=== PATIENT | male | born 1965 | race Caucasian/White ===

== ENCOUNTER 2022-05-05 18:56 | Emergency (ER) | payer OTHER ==
[~2022-05-05] VITALS: Ht 183 cm; Wt 95.6 kg
[2022-05-05] MEDS ORDERED: NS IV 1000 ML 1,000 ML IV STA (19:06)
[2022-05-05] MEDS ORDERED: fentaNYL INJ 100 MCG/2 ML AMP IVP STA (19:06)
[2022-05-05] MEDS ORDERED: TETANUS,DIPTH,PERTUSS P/F (BOOSTRIX) 0.5 ML VIAL IM ONE (19:15)
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
[2022-05-05 19:25] LABS: BASOPHILS # (AUTO) 0.1 10^3/uL (0.0-0.1); BASOPHILS % (AUTO) 0 % (0-10); EOSINOPHILS # (AUTO) 0.3 10^3/uL (0.0-0.3); EOSINOPHILS % (AUTO) 2 % (0-10); HEMATOCRIT 43 % (40-54); HEMOGLOBIN 14.6 g/dL (13.3-17.7); LYMPHOCYTES # (AUTO) 5.8 10^3/uL (1.0-4.0); LYMPHOCYTES % (AUTO) 39 % (12-44); MEAN CORPUSCULAR HEMOGLOBIN 31 pg (25-34); MEAN CORPUSCULAR HGB CONC 34 g/dL (32-36); MEAN CORPUSCULAR VOLUME 92 fL (80-99); MEAN PLATELET VOLUME 11.9 fL (9.0-12.2); MONOCYTES # (AUTO) 0.9 10^3/uL (0.0-1.0); MONOCYTES % (AUTO) 6 % (0-12); NEUTROPHILS # (AUTO) 7.8 10^3/uL (1.8-7.8); NEUTROPHILS % (AUTO) 52 % (42-75); PLATELET COUNT 257 10^3/uL (130-400)
--- NOTE | 2022-05-05 19:40 | Diagnostic Imaging Report ---
PATIENT HISTORY: Cough. TECHNIQUE: Single frontal view of the chest. COMPARISON: None. FINDINGS: The lung volumes are normal. No focal consolidation is seen. No large pleural effusion or pneumothorax is seen. The cardiomediastinal silhouette is normal in size and contour. No acute osseous abnormality is seen. IMPRESSION: No acute pulmonary abnormality is seen. Dictated by: Dictated on workstation # [id number]
[2022-05-05 19:54] LABS: ALBUMIN 4.1 GM/DL (3.2-4.5); BILIRUBIN,TOTAL 0.6 MG/DL (0.1-1.0); CALCIUM 9.1 MG/DL (8.5-10.1); CREATININE SERUM 1.11 MG/DL (0.60-1.30)
[2022-05-05 20:05] LABS: EOSINOPHILS % (MANUAL) 1 %; LYMPHOCYTES % (MANUAL) 43 %; MONOCYTES % (MANUAL) 4 %; NEUTROPHILS % (MANUAL) 52 %; RBC MORPH NORMAL
[2022-05-05 22:25] VITALS: BP 131/72
== END 2022-05-05 22:28 | disposition home or self-care (01) ==
LOC: EDUNIT# 18:56 → ER 18:58
DX: T24.232A Burn of second degree of left lower leg, initial encounter (principal); T24.231A Burn of second degree of right lower leg, initial encounter; T23.202A Burn of second degree of left hand, unspecified site, initial encounter; T23.201A Burn of second degree of right hand, unspecified site, initial encounter; J44.9 Chronic obstructive pulmonary disease, unspecified; F17.210 Nicotine dependence, cigarettes, uncomplicated; X03.0XXA Exposure to flames in controlled fire, not in building or structure, initial encounter
CPT/HCPCS: 36415; 71045; 80053; 82375; 82550; 82805; 85007; 85027; 90715; 99291